=== PATIENT | male | born 1980 | race Two or more races ===

== ENCOUNTER 2018-03-26 18:23 | Emergency (ER) | payer MEDICAID ==
[~2018-03-26] VITALS: Ht 175.3 cm; Wt 80.9 kg
[2018-03-26 18:28] VITALS: BP 138/79
== END 2018-03-26 19:38 | disposition home or self-care (01) ==
LOC: ER 18:24
DX: F41.9 Anxiety disorder, unspecified (principal); F12.90 Cannabis use, unspecified, uncomplicated; Z87.891 Personal history of nicotine dependence
CPT/HCPCS: 93005; 99283